=== PATIENT | male | born 1970 | race Caucasian/White ===

== ENCOUNTER 2017-05-19 19:53 | Emergency (ER) | payer SELFPAY ==
[2017-05-19] MEDS ORDERED: Morphine INJ* 4 MG/ML 1 ML CARPUJECT IV ONE (20:40)
[2017-05-19] MEDS ORDERED: Ondansetron INJ* 2 MG/ML VIAL IV ONE (20:41)
[2017-05-19 21:38] LABS: Hematocrit 45 % (42-52); Hemoglobin 15.2 g/dl (14.0-18.0); Mean Corpuscular HGB Conc 34 g/dl (31-36); Mean Corpuscular Hemoglobin 31 pg (27-31); Mean Corpuscular Volume 92 fL (80-94); Mean Platelet Volume 7 um3 (7.4-10.4); Red Blood Count 4.84 10^6/ul (4.0-5.4); Red Cell Distribution Width 14 % (10.5-15); White Blood Count 13.6 10^3/ul (3.5-10.8)
[2017-05-19 21:52] LABS: Albumin 4.6 g/dL (3.2-5.2); BUN/Creatinine Ratio 8.4 (8-20); Calcium 9.2 mg/dL (8.6-10.3); EGFR African American 110.3 (>60); EGFR Non-African American 85.7 (>60); Globulin 2.7 g/dL (2-4); Potassium 3.8 mmol/L (3.5-5.0); Total Bilirubin 0.4 mg/dL (0.2-1.0); Total Protein 7.3 g/dL (6.4-8.9)
[2017-05-19] MEDS ORDERED: Iohexol 300* (CONTRAST) 10 ML SDV IV ONE (22:03)
[2017-05-19] MEDS ORDERED: Morphine INJ* 2 MG/ML 1 ML CARPUJECT IV ONE (23:43)
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
[2017-05-20] MEDS ORDERED: Ketorolac INJ* 30 MG/ML 1 ML VIAL IV PUSH ONE (00:10)
[2017-05-20] MEDS ORDERED: HYDROcodone/ACETAMIN 5-325 MG* 1 TAB PO ONE (02:39)
[2017-05-20 02:53] VITALS: BP 119/85
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
--- NOTE | 2017-05-20 06:49 | RAD ---
INDICATION: Pain COMPARISON: None. TECHNIQUE: 4 views right wrist and 3 views of the right forearm. REPORT: The visualized bones are properly aligned and well corticated. The joint spaces are normal.There is no fracture, dislocation or other focal osseous abnormality. IMPRESSION: Normal radiograph of the right forearm and wrist. If the patient's symptoms persist, follow-up imaging is recommended.
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
== END 2017-05-20 02:52 | disposition home or self-care (01) ==
LOC: ED 19:53
DX: S22.31XA Fracture of one rib, right side, initial encounter for closed fracture (principal); S16.1XXA Strain of muscle, fascia and tendon at neck level, initial encounter; V49.3XXA Car occupant (driver) (passenger) injured in unspecified nontraffic accident, initial encounter; J32.0 Chronic maxillary sinusitis; Y93.9 Activity, unspecified; Y92.9 Unspecified place or not applicable; F17.210 Nicotine dependence, cigarettes, uncomplicated
CPT/HCPCS: 36415; 70450; 71260; 72125; 74177; 80053; 85025; 86850; 86900; 86901; 93005; 96374; 96375; 99283; J1885; J2270; J2405; Q9967